=== PATIENT | female | born 1960 | race Caucasian/White ===

== ENCOUNTER 2016-08-30 06:33 | Inpatient (IN) | payer MEDICARE ==
[~2016-08-30] VITALS: Ht 185.4 cm; Wt 113.4 kg
[~2016-08-30 06:33] MED LIST: CHLORTHALIDONE25 MG PO; DILAUDID4 MG PO; FLOMAX0.4 MG PO; IMITREX PO; MELOXICAM PO; POTASSIUM CITR10 MEQ PO; PYRIDIUM200 MG PO; TRAMADOL HCL50 MG PO; TYLENOL WITH C1 EACH PO
[2016-08-30] MEDS ORDERED: MOBIC15 MG PO (11:10)
[2016-08-30] MEDS ORDERED: IMITREX100 MG PO (11:10)
[2016-08-30] MEDS ORDERED: ALL DAY ALLERGY10 M3 PO (11:11)
[2016-08-30] MEDS ORDERED: UROCIT-K15 MEQ PO (11:11)
[2016-08-30] MEDS ORDERED: DAILY MULTIPLE1 EACH PO (11:12)
--- NOTE | 2016-08-30 12:26 | NUR ---
[facility]READMIT PT CARE NOTE THIS IS A 55 YEAR OLD FEMALE SCHEDULED FOR A RIGHT TOTAL KNEE REPLACEMENT ON 09/05/[address] WM AGUILAR. PT STATES SHE LIVES IN A ONE STORY HOME WITH HER , HOME HAS ONE STEP UP TO THE RAMP. PT STATES THAT SHE HAS A TUB/SHOWER COMBINATION AND IS GETTING A SHOWER SEAT, STATES SHE ALREADY HAS A HANDHELD SHOWERHEAD. ALSO STATES SHE IS GOING TO GET A WALKER PRIOR TO HAVING HER SURGERY, IF SHE IS UNABLE TO OBTAIN ONE, WILL GLADLY ORDER ONE WHILE SHE IS HERE. PT STATES SHE HAS AN APPT WITH OP PT ON SUNDAY, AND WILL BE SEEKING OP PT AFTER HER STAY IN THE HOSPITAL. DENIED ANY FURTHER QUESTIONS, NEEDS, CONCERNS, OR ISSUES. WILL FOLLOW HER DURING HER STAY IN THE HOSPITAL. ANJU GONGORA DC CRAPS DEALER CASE MANAGEMENT
--- NOTE | 2016-09-05 09:35 | NUR ---
09/05/16 0935 Roxana Hammer 0928 PATIENT ARRIVES AWAKE, BUT DROWSY. DENIES PAIN, UNABLE TO MOVE LEGS. MASK AT 6 LITERS. 0935 PATIENT REQUESTS TO HAVE MASK OFF, ROOM AIR SATS AT 93%.
--- NOTE | 2016-09-05 09:49 | NUR ---
PT ALERT AND ORIENTED. SHE SEEMED PREPARED AND PRETTY RELAXED. HAD ALREADY BEEN IN TO SEE PT AND SHE SEEMED READY. I FOUND HER VERY FRIENDLY, AND THANKED ME FOR COMING IN. PT DECLINED PRAYER AT THIS TIME. WILL FOLLOW NEEDED
--- NOTE | 2016-09-05 10:24 | NUR ---
PATIENT ARRIVED TO MED SURG ON ROOM AIR, SATS ARE 93% VIA PULSE OX. PATIENT DENIES PAIN, EPIDURAL IS IN EFFECT UNTIL 1744. RIGHT KNEE DRESSING IS SUZY WRAP AND IS CDI. PATIENT HAS GROSS MOVEMENT OF LEGS, SENSATION HAS NOT YET RETURNED, FEET ARE WARM BILATERALLY.
--- NOTE | 2016-09-05 10:29 | NUR ---
PATIENT USING THE INCENTIVE SPIROMETER WELL.
--- NOTE | 2016-09-05 11:03 | NUR ---
ASSESSMENT DONE. ICE TO KNEE. PT ABLE TO WIGGLE LEG AND TOES. DENIES PAIN. TOLERATING CRACKERS AND BROTH. ORDERING LUNCH.
[2016-09-05] MEDS ORDERED: ACETAMINOPHEN-1 EAC1 PO (11:50)
--- NOTE | 2016-09-05 11:50 | NUR ---
SPOKE TO PT AND PHARMACY REGARDING ADV. REACTION TO DILAUIDID. PT STATES IT WAS PO AND SHE VOMITTED UNCONTROLLABLY AFTER TAKING IT. WOULD LIKE TO TAKE SOMETHING ELSE. CALLED AND LEFT MESS. ON DR EPPS PHONE.
--- NOTE | 2016-09-05 12:26 | NUR ---
PT IN WITH A NUMBER OF FAMILY/VISITORS. SHE WELCOMED ME IN, SAID SHE IS FEELING WELL NOW. WILL CONTINUE TO FOLLOW. EXTENDED A BLESSING
--- NOTE | 2016-09-05 12:34 | NUR ---
MED REC COMPLETE--PER PATIENT
--- NOTE | 2016-09-05 13:17 | NUR ---
PT DENIES PAIN. WIGGLING TOES AND LEG. ATE LUNCH WITHOUT DIFFICULTY.
--- NOTE | 2016-09-05 14:20 | NUR ---
ADMINISTERED SCHEDULED MEDS. PT AWAKE AND WATCHING TV. STATES SHE HAS ZERO PAIN AND IS STILL A LITTLE NUMB IN HER BUTT. STATES SHE WILL TRY TO VOID WHEN PHYS. THER. COMES TO WORK WITH HER IN 15 MINUTES.
--- NOTE | 2016-09-05 16:06 | NUR ---
PT BLADDER SCANNED FOR 558. CALLED DR AGUILAR REGARDING WALSH PLACEMENT AND PAIN MED CHANGE DUE TO PT INABILITY TO TAKE DILUIDID. CHANGED ORDERS AND PLACED WALSH. 725 RETURNED. PT STILL DENIES FEELING THE URGE TO VOID.
--- NOTE | 2016-09-05 17:20 | NUR ---
PT WORKED WITH COMPUTER PROGRAMMER ANALYST., WALKED IN BAZZI, TOLERATED WELL. DENIES PAIN. UNABLE TO VOID, PLACED WALSH. CHANGED PO MED TO NORCO DUE TO PT ADV. REACTION TO DILAUDID. DRESSING CDI. ICE TO SITE.
--- NOTE | 2016-09-05 18:13 | NUR ---
PATIENT SITTIN UP IN BED WATCHING TV. FRESH ICE WATER AND ICE PACK. NO OTHER NEEDS AT THIS TIME.
--- NOTE | 2016-09-05 19:45 | NUR ---
IN TO SEE PT, ASSESSMENT DONE, CMS INTACT, SCD'S, HEELS AND ICE IN PLACE. PT RESTING IN BED, WATCHING TV. PT DENIES PAIN. NO FURTHER NEEDS AT THIS TIME, CALL LIGHT WITHIN REACH.
--- NOTE | 2016-09-05 22:32 | NUR ---
IN TO CHECK ON PT, PT APPEARS TO BE SLEEPING. SCD'S, HEELS AND ICE IN PLACE. IVF INFUSING. CALL LIGHT WITHIN REACH.
--- NOTE | 2016-09-06 00:34 | NUR ---
IN TO CHECK ON PT, HEEL PROTECTORS READJUSTED,ICE BAG REFILL AND REAPPLIED. PT RATES PAIN A 2/10. WALSH EMPTIEND. FRESH WATER GIVEN. NO FURTHER NEEDS AT THIS TIME. CALL LIGHT WITHIN REACH.
--- NOTE | 2016-09-06 01:17 | NUR ---
PT COMPLAINED OF 4/10 PAIN IN HER LEFT KNEE, GAVE SCHEDULED PAIN AND PRN MORPHINE. PT HAS NO FURTHER NEEDS. CALL LIGHT IN REACH.
--- NOTE | 2016-09-06 03:32 | NUR ---
IN TO CHANGE IVF, PT RATES HER PAIN A 1/10, SCD'S, HEELS AND ICE IN PLACE. NO FURTHER NEEDS AT THIS TIME, CALL LIGHT WITHIN REACH.
--- NOTE | 2016-09-06 04:47 | NUR ---
PT HAS RESTED WELL THROUGH OUT THE NIGHT.PT HAS HAD MINIMAL PAIN. NORCO AND MORPHINE GIVEN. PT ACTIVE IN BED, ENCOURAGE TO REST R KNEE TO PREVENT INCREASED PAIN. WALSH IN PLACE DUE TO URINARY RETENTION AND DRAINING QUANTITY SUFFICIENT. IVF INFUSING. SCD'S, HEEL PROTECTORS, SUZY WRAP AND ICE IN PLACE.
--- NOTE | 2016-09-06 05:52 | NUR ---
IN TO CHECK ON PT, LAB INTO DRAW BLOOD, SCD'S, HEEL AND ICE IN PLACE. CALL LIGHT WITHIN REACH.
--- NOTE | 2016-09-06 06:40 | NUR ---
IN TO SEE PT, NORCO GIVEN. WALSH DC'D AND IV SL PER ORDERS. BLOODY DRAINAGE NOTED ON DRSG ON THE POSTERIOR ASPECT OF THE R KNEE. ICE WATER GIVEN. NO FURTHER NEEDS AT THIS TIME. CALL LIGHT WITHIN REACH.
--- NOTE | 2016-09-06 07:10 | NUR ---
REPORT RECIEVED FROM FRANSISCA ZURITA. PT HAD GOOD NIGHT AND IS AWAKE IN BED. HAS SOME DRAINAGE SHOWING THROUGH DRESSING. PT DENIES MUCH PAIN RIGHT NOW. HAD PAIN PILL THIS MORNING.
--- NOTE | 2016-09-06 07:30 | NUR ---
stand by assist to chair with walker. patient sittin with legs up eating breakfast. ice fresh in ice bags on right knee.fresh ice water given. no other needs at this time. call button in reach.
--- NOTE | 2016-09-06 08:30 | NUR ---
AGUILAR IN TO SEE PT WHILE GIVING MEDS. STATES THAT PT CAN GO HOME IF SHE WISHES. PT CONCURS. ANSWERED ALL QUESTIONS REGARDING SHOWERING AND DRESSING CHANGES. ORDERED NEW DRESSING CHANGE BEFORE DISCHARGE. EDUCATED PT ON TAKING PRESCRIBED PAIN MEDS VS HOME PAIN PILLS.
--- NOTE | 2016-09-06 08:39 | NUR ---
Patient sittin up in chair bathing and putting make up on fixing her hair. Patient has no needs at this time. call button in reach.
--- NOTE | 2016-09-06 10:00 | NUR ---
PATIENT UP TO VOID 150ML OF URINE IN THE BATHROOM. PATIENT GIVEN ONE NORCO FOR 4/10 RIGHT KNEE PAIN AFTER PHYSICAL THERAPY. NEW ICE PACKS PROVIDED.
[2016-09-06] MEDS ORDERED: XARELTO10 MG PO (10:44)
[2016-09-06] MEDS ORDERED: NORCO 10-325 T1 EACH PO (10:45)
--- NOTE | 2016-09-06 10:45 | NUR ---
CHANGED PT DRESSING. KATY HAY ASSISTED IN HOLDING LEG. PT TOLERATED WELL AND STATED THAT SHE UNDERSTOOD THE INSTRUCTIONS ON CHANGING IT AND KEEPING IT CLEAN AND DRY.
--- NOTE | 2016-09-06 11:28 | NUR ---
PT JUST BACK FROM P.T. SEEMS ENERGIZED AND READY FOR DC. FRIENDLY, ALERT AND ORIENTED. SHE THANKED ME FOR VISITING-EXTENDED A BLESSING, GOD SUSS
--- NOTE | 2016-09-06 14:02 | NUR ---
PT EDUCATION GIVEN. PT VERBALIZED UNDERSTANDING. IV REMOVED WNL. PRESCRIPTION GIVEN. DRESSING CDI. WORKED WITH PHYS. THER. A SECOND TIME. TOLERATED WELL. FAMILY IN ROOM, WAITING FOR .
--- NOTE | 2016-09-07 07:12 | OR ---
[facility] [address] [place], [place] [address] Signed DATE OF SERVICE: 09/05/2016 PREOPERATIVE DIAGNOSIS: End-stage osteoarthritis, right knee. POSTOPERATIVE DIAGNOSIS: End-stage osteoarthritis, right knee. PROCEDURE: Right total knee arthroplasty. IMPLANTS: Attune size 8 PS femur, size 7 cemented tibial tray. A 5 PS poly and a 38 mm poly-patellar button. SURGEON: Cruz Aguilar MD ANESTHESIA: Spinal with sedation. SPECIMEN: There were no specimens. COMPLICATIONS: None. TOURNIQUET TIME: About 75 minutes. WHAT WAS DONE: Patient was taken to the operating room. After the anesthesia was inducted and the patient sedated, the right lower extremity was positioned, prepped, and draped in the routine sterile fashion. The leg was exsanguinated with an Esmarch bandage. Pneum atic tourniquet about the thigh was inflated to 300 mmHg pressure. A straight anterior approach was made to the knee through skin and subcutaneous tissue. Small medial flap was created and an anteromedial arthrotomy performed. The patella was turned on edge and about 10 mm of patella were resected. The patella was then fit with a 38 mm. A lollipop, which gave us good position and good coverage. We therefore drilled the hole. A trial 38 poly and completely restored the previous patellar height. Patellar tri a l was removed. The patellar was slide into the lateral recess and the knee was flexed. Using the Dexin Interactive navigation system, we digitized the distal femur following the protocol. Distal femoral resection was then accomplished and about 3 degrees of flex ne utral verus valgus taking about 11 mm of the medial side . The femorals wafers were then removed and marginal osteophytes excised. We then transitioned the Dexin Interactive navigation system at the proximal tibia and again the following [place] protocol, digitize the proximal tibia. The proximal tibia was then resected in neutral varus valgus and about 3-degrees of posterior slope for the Attune surgical protocol and removing about 4 mm of the medial side. After the wafer had been removed along with remnants of the m e dial and lateral meniscus, ACL and PCL. Knee was placed in full extension and the extension spacer block fit quite nicely. We then flexed the knee. The femoral size was placed on the distal Electronically Signed By: CRUZ AGUILAR MD 09/07/16 0712 PATIENT NAME: SAÚL RENDON OPERATIVE REPORT DATE OF : 56 PHYSICIAN: CRUZ AGUILAR MD REPORT #: [id number] REPORT IS CONFIDENTIAL AND NOT TO BE RELEASED WITHOUT AUTHORIZATION [facility] [address] [place], [place] [address] Signed femur and sized with size 8. The size 7 clearly would have notched the femur anteriorly. The 4 in 1 cutting block was placed on the distal femur and anterior posterior and chamfer cuts were made. The notch cutting block was then placed and the notch was cut out a size 8 PS femur. The femoral trial was then impacted on t h e end of the femur and the leg holes were drilled. We then placed a size 8 tray on the tibia, but there was overhangs, so we downsized with size 7. A 7 mm tray with a 5 mm poly was inserted and they gave us excellent range of motion, good stability, and excellent stability throughout. We marked the rotatio nal alignment of the tibial tray and remove the trails. Tibia was then prepared the standard reamer and broach. We then copiously irrigated and meticulously dried the knee. A double batch of cement was mixed and the tibial tray and the femoral component were cemented in the place. Marginal cement of heights were sought and removed. The poly was then snap-fit onto the tibial tray and the knee was placed in full extension. The patellar button was then also cemented to the back of the patella and held with the patellar clamp. After the cement had hardened, the patellar clamp was removed. We again cycled the knee. We were happy with the alignment and position. There were no additional significant cement of height to be removed. Knee was copiously irrigated and drained and closed in a standard fashion. Sterile dressing was applied. The patient was awaken and taken into the recovery room, where she arrived in stable condition. Counts were correct and antibiotic protocols were followed. Cruz Aguilar MD WFB/Modl /[id number] Electronically Signed By: CRUZ AGUILAR MD 09/07/16 0712 PATIENT NAME: SAÚL RENDON OPERATIVE REPORT DATE OF : 56 PHYSICIAN: CRUZ AGUILAR MD REPORT #: [id number] REPORT IS CONFIDENTIAL AND NOT TO BE RELEASED WITHOUT AUTHORIZATION
== END 2016-09-06 14:52 | disposition home or self-care (01) | DRG 470 ==
LOC: DSVR 09-05 06:15 → MS 09-05 06:15
PROVIDERS: ADMIT Orthopaedic Surgery
PROC: 0SRC0J9 Replacement of Right Knee Joint with Synthetic Substitute, Cemented, Open Approach (ICD-10-PCS; principal; 2016-09-05 08:15)
DX: M19.90 Unspecified osteoarthritis, unspecified site (principal); Z87.442 Personal history of urinary calculi
CPT/HCPCS: 01402; 36415; 73560; 80048; 82310; 82330; 85025; 97110; 97116; 97161; C1713; C1776; J0690; J1885; J2250; J2270; J2274; J2405; J2704; J3010; J7120

== ENCOUNTER 2016-10-07 12:00 | Emergency (ER) | payer MEDICARE ==
[~2016-10-07] VITALS: Ht 185.4 cm; Wt 113.4 kg
--- OUTSIDE RECORDS SUMMARY | ~2016-10-07 | XMS ---
Demographics + + + | Address | [address] | | | [place] [address] | + + + | Preferred Language | Unknown | + + + | Marital Status | Unknown | + + + | Jew Affiliation | Unknown | + + + | Race | Unknown | + + + | Ethnic Group | Unknown | + + + Author + + + | Author | [facility] | + + + | Organization | [facility] | + + + | Address | [address] [facility] [address] | | | [place] [phone] | + + + | Phone | | + + + Care Team Providers + + + + | Care Heading And Priming Operator Name | Role | Phone | + + + + Unavailable | Unavailable | + + + + PROBLEMS +---------+ + + +--------+ + + | Type | Condition | ICD9-CM | [id number] | Onset | Condition | SNOMED | | | | Code | Code | Dates | Status | Code | +---------+ + + +--------+ + + | Problem | Acute | 461.8 | | | Active | [id number] | | | pansinusit | | | | | | | | is | | | | | | +---------+ + + +--------+ + + | Problem | Tobacco | 305.1 | | | Active | [id number] | | | use | | | | | | +---------+ + + +--------+ + + | Problem | HTN | 401.9 | | | Active | [id number] | | | [Hypertens | | | | | | | | ion] | | | | | | +---------+ + + +--------+ + + | Problem | Acute | 461.9 | | | Active | [id number] | | | sinusitis | | | | | | | | NOS | | | | | | +---------+ + + +--------+ + + ALLERGIES Unknown Allergies SOCIAL HISTORY No smoking Hx information available PLAN OF CARE VITAL SIGNS MEDICATIONS Unknown Medications RESULTS No Results PROCEDURES No Known procedures IMMUNIZATIONS No Known Immunizations"
[~2016-10-07 12:00] MED LIST changes: +ACETAMINOPHEN-1 EAC1 PO; +ALL DAY ALLERGY10 M3 PO; +DAILY MULTIPLE1 EACH PO; +IMITREX100 MG PO; +MOBIC15 MG PO; +NORCO 10-325 T1 EACH PO; +UROCIT-K15 MEQ PO; +XARELTO10 MG PO
[2016-10-07] MEDS ORDERED: LEVOFLOXACIN750 MG PO (14:25)
== END 2016-10-07 14:50 | disposition home or self-care (01) ==
LOC: ED 12:00
DX: T81.31XA Disruption of external operation (surgical) wound, not elsewhere classified, initial encounter (principal); F17.200 Nicotine dependence, unspecified, uncomplicated; Z87.442 Personal history of urinary calculi; Z90.49 Acquired absence of other specified parts of digestive tract; Z88.5 Allergy status to narcotic agent; Z88.8 Allergy status to other drugs, medicaments and biological substances; Z88.2 Allergy status to sulfonamides; Z79.891 Long term (current) use of opiate analgesic; Z79.899 Other long term (current) drug therapy
CPT/HCPCS: 85025; 85651; 87070; 87077; 87186; 87205; 99283

== ENCOUNTER 2021-06-14 07:45 | Day surgery (SDC) | payer MEDICARE ==
[~2021-06-14] VITALS: Ht 185.4 cm; Wt 100.0 kg
--- NOTE | ~2021-06-14 | OR ---
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 POSTOPERATIVE DIAGNOSIS: Nasal obstruction due to septal deformity and inferior turbinate hypertrophy. PROCEDURES: Septoplasty and cautery, bilateral inferior turbinates. ANESTHESIA: General, LMA, PLUCK SEPARATOR, Richard. PREOPERATIVE HISTORY: Mrs. Garrett is a 60-year-old lady with a long history of nasal obstruction. She has been noted to have septal deformity and inferior turbinate hypertrophy, unresponsive to appropriate medications. She is taken to the operating room for the above-mentioned procedures. OPERATIVE PROCEDURE AND FINDINGS: After informed consent, the patient was taken to the operating room, placed in the supine position, where LMA anesthesia was induced. Patient and procedure were verified. The patient was repositioned. The patient received preoperative intranasal oxymetazoline and intravenous Ancef. Headlight speculum exam of the nasal cavity showed a significant septal deformity on the right side. A large spur inferiorly extending all the way back posteriorly. Septal mucosa was injected with 1% lidocaine with epi. The mucosa was elevated off the deviated septal bone and cartilage and the deviation was removed with the Jenna. The nasal cavity was improved, opened in this manner, minimal bleeding. The inferior turbinates were then cauterized with a long handle needle point cautery. Multiple submucosal passes starting on the left side. The medial and inferior surface of the inferior turbinate were cauterized multiple times starting anteriorly, extending all the way back posteriorly. Good decongestion and shrinkage of the turbinate was obtained. Same procedure on the right inferior turbinate. Hemostasis was verified. Packing was then placed, equal amount, one piece of Merocel each side trimmed, coated with Neosporin, tied anteriorly over a pad. The pharynx was suctioned clear of blood PATIENT NAME: SAÚL GARRETT OPERATIVE REPORT DATE OF : 56 REPORT #: [id number] PHYSICIAN: DOUGLAS FORTUNE MD PCP: CHRISTINA SAINI MD REPORT IS CONFIDENTIAL AND NOT TO BE RELEASED WITHOUT AUTHORIZATION [facility] [address] [place] [address] [place], [place] [address] Draft secretions. The patient was then awakened, extubated, and transported to the recovery room in good condition. COMPLICATIONS: No complications. ESTIMATED BLOOD LOSS: Minimal. SPECIMENS: No specimens. DRAINS: No drains. PACKING: One piece of Merocel, each nostril. Douglas Fortune MD GC/MODL /[id number] Copies: ~ PATIENT NAME: SAÚL GARRETT OPERATIVE REPORT DATE OF : 56 REPORT #: [id number] PHYSICIAN: DOUGLAS FORTUNE MD PCP: CHRISTINA SAINI MD REPORT IS CONFIDENTIAL AND NOT TO BE RELEASED WITHOUT AUTHORIZATION
[~2021-06-14 07:45] MED LIST changes: +BAYER CHEWABLE81 MG PO; +IPRAT-ALBUT 0.5-3 ML INH; +LEVOFLOXACIN750 MG PO; +LIPITOR20 MG
--- NOTE | 2021-06-14 09:51 | NUR ---
06/14/21 0951 Sheets,Tashia 0939 PT ARRIVED TO PACU ON 10L VIA MASK, VSS. ORAL AIRWAY IN PLACE WITH JAW THURST NEEDED TO MAINTAIN AIRWAY.
--- NOTE | 2021-06-14 10:46 | NUR ---
PATIENT BACK IN DAY SURGERY ROOM FROM PACU. RATES PAIN 2/10. DROWSY. SLEEPING, BUT EASILY WAKES UP TO VOICE. VS CHECKED. MOUSTACHE DRESSING IN PLACE IS CLEAN, DRY AND INTACT. TOLERATING SIPS OF WATER. IV SITE WNL. SCDs ON. CALL LIGHT WITHIN REACH.
[2021-06-14] MEDS ORDERED: HYDROCODON-ACE1 EA10 PO (11:08)
[2021-06-14] MEDS ORDERED: CEPHALEXIN500 M1 PO (11:08)
--- NOTE | 2021-06-14 13:35 | NUR ---
1140: PATIENT RATES PAIN 03/31. DENIES NEED FOR PAIN MEDICATION AT THIS TIME. VS CHECKED. PATIENT ASSISTED OOB AND TO BATHROOM. GAIT STEADY. VOID WITHOUT DIFFICULTY. GAIT STEADY BACK TO ROOM. IV DC'D WNL. TIP INTACT. DRESSING APPLIED. PATIENT GETTING DRESSED WITH HELP FROM . 1208: DISCHARGE INSTRUCTIONS GIVEN TO PATIENT AND . PATIENT AND EDUCATED ON HOW TO CHANGE MUSTACHE DRESSING. PATIENT DISCHARGED TO HOME WITH VIA WHEELCHAIR.
== END 2021-06-14 12:08 | disposition home or self-care (01) ==
LOC: OPS 07:45 → DS 07:45 → OPS 09:00
PROVIDERS: ATTEND Otolaryngology
PROC: 09SM0ZZ Reposition Nasal Septum, Open Approach (ICD-10-PCS; principal; 2021-06-14 09:00)
PROC: 095L7ZZ Destruction of Nasal Turbinate, Via Natural or Artificial Opening (ICD-10-PCS; 2021-06-14 09:00)
DX: J34.2 Deviated nasal septum (principal); J34.3 Hypertrophy of nasal turbinates; I10 Essential (primary) hypertension; E78.00 Pure hypercholesterolemia, unspecified; F17.200 Nicotine dependence, unspecified, uncomplicated; Z88.6 Allergy status to analgesic agent; Z88.2 Allergy status to sulfonamides; Z88.8 Allergy status to other drugs, medicaments and biological substances
CPT/HCPCS: J0690; J1100; J1885; J2250; J2405; J2704; J2765; J3010; J7121

== ENCOUNTER 2022-01-04 19:11 | Emergency (ER) | payer MEDICARE ==
[~2022-01-04] VITALS: Ht 185.4 cm; Wt 99.8 kg
[~2022-01-04 19:11] MED LIST changes: +CEPHALEXIN500 M1 PO; +HYDROCODON-ACE1 EA10 PO
--- NOTE | 2022-01-07 13:54 | EKG ---
[facility] [address] [facility] [place] [address] Signed Normal sinus rhythm Possible Left atrial enlargement Left ventricular hypertrophy ( R in aVL , [place]as product ) Cannot rule out Septal infarct (cited on or before 09-JUN-2021) Abnormal ECG When compared with ECG of 09-JUN-2021 09:52, No significant change was found Confirmed by RUSSELL FRANCO MD ([id number]) on 01/07/2022 1:54:23 PM Electronically Signed By: RUSSELL FRANCO MD 01/07/22 1354 PATIENT NAME: SAÚL RENDON Electrocardiogram DATE OF : 56 PHYSICIAN: RUSSELL FRANCO MD REPORT #: [id number] REPORT IS CONFIDENTIAL AND NOT TO BE RELEASED WITHOUT AUTHORIZATION
== END 2022-01-04 20:26 | disposition home or self-care (01) ==
LOC: ED 19:11
DX: R07.9 Chest pain, unspecified (principal); G43.909 Migraine, unspecified, not intractable, without status migrainosus; M19.90 Unspecified osteoarthritis, unspecified site; F17.200 Nicotine dependence, unspecified, uncomplicated; Z88.2 Allergy status to sulfonamides; Z88.1 Allergy status to other antibiotic agents; Z88.5 Allergy status to narcotic agent; Z88.8 Allergy status to other drugs, medicaments and biological substances; Z79.899 Other long term (current) drug therapy; Z79.82 Long term (current) use of aspirin
CPT/HCPCS: 36415; 71045; 80053; 83735; 84484; 85025; 93005; 93010; 99285-25

== ENCOUNTER 2023-11-27 11:15 | Day surgery (SDC) | payer MEDICARE ==
[~2023-11-27] VITALS: Ht 185.4 cm; Wt 106.8 kg
[~2023-11-27 11:15] MED LIST changes: +CEFAZOLIN SODIUM 2 GM/20 ML SYR IV SCH; +IBLOOD GLUCOSE TEST STRIP 1 EA TEST VI PRN; +LACTATED RINGER'S 1,000 ML IV SCH; +LIDOCAINE HCL 1% 5 ML SDV INJ ONE; +MIDAZOLAM HCL 5 MG/5 ML VIAL IV PRN; +fentaNYL citrate 100 MCG/2 ML VIAL IV PRN
[2023-11-27 11:37] VITALS: BP 117/69
[2023-11-27] MEDS ORDERED: ALLEGRA ALLERGY60 MG PO (11:42)
[2023-11-27] MEDS ORDERED: MIDAZOLAM HCL 5 MG/5 ML VIAL ONE (13:12)
[2023-11-27] MEDS ORDERED: fentaNYL citrate 100 MCG/2 ML VIAL ONE (13:13)
--- NOTE | 2023-11-27 14:29 | NUR ---
11/27/23 Tasneem9 Olga Lidia Garibay 1426-PATIENT ARRIVED TO PACU ON 0.5L NC PLACED ON RA RR EVEN. PATIENT AWAKE DROWSY DENIES PAIN OR NAUSEA. IVF INFUSING. ABDOMEN SOFT LAYING LEFT LATERAL. ORIENTED TO PACU. DOZES BACK TO SLEEP
[2023-11-27 14:55] VITALS: BP 108/74
--- NOTE | 2023-11-29 14:24 | PATH ---
[facility] [address] [facility] [place], [place] [address] Signed SPECIMEN(S): A SIGMOID POLYPS SPECIMEN(S): B RECTAL POLYPS SPECIMEN(S): C LOWER RECTAL POLYPS SPECIMEN SOURCE: A. SIGMOID POLYPS B. RECTAL POLYPS C. LOWER RECTAL POLYPS CLINICAL HISTORY: Family history of colon cancer FINAL PATHOLOGIC DIAGNOSIS: A. Colon, sigmoid, polypectomy: - Tubular adenoma B. Rectum, polypectomy: - Hyperplastic polyp C. Rectum, lower, polypectomy: - Hyperplastic polyp BRP MICROSCOPIC EXAMINATION: Histologic sections of all submitted blocks are examined by light microscopy. These findings, together with the gross examination, support the pathologic diagnosis. GROSS DESCRIPTION: A. The specimen, labeled and designated "Garrett, sigmoid polyp," is received in formalin and consists of four turner soft tissue fragments, ranging from 0.3-0.5 cm. Entirely submitted in (A1). B. The specimen, labeled and designated "Garrett, rectal polyps," is received in formalin and consists of five turner soft tissue fragments, ranging from 0.1-0.5 cm. Entirely submitted in (B1). C. The specimen, labeled and designated "Garrett, lower rectal polyps," is received in formalin and consists of eight turner soft tissue fragments, ranging from 0.1-0.2 cm. Entirely submitted in (C1). VB (under the direct supervision of a pathologist) The Gross Description was prepared using a voice recognition system. The report was reviewed for accuracy; however, sound-alike word errors, addition and/or deletions may occur. If there is any question about this report, please contact Client Services. PATIENT NAME: SAÚL GARRETT PATHOLOGY DATE OF : 56 REPORT #: [id number] PHYSICIAN: TOM MARTINEZ PCP: CHRISTINA SAINI MD REPORT IS CONFIDENTIAL AND NOT TO BE RELEASED WITHOUT AUTHORIZATION [address], [place] [address] Signed ADDITIONAL NOTES: Immunohistochemical and/or in situ hybridization studies if performed in this case included appropriate positive controls that reacted as expected. This test was developed and its performance characteristics determined by [facility]. It has not been cleared or approved by the U.S. Food and Drug Administration. The FDA has determined that such clearance or approval is not necessary. This test is used for clinical purposes. It should not be regarded as investigational or for research. [facility] is certified under the Clinical Laboratory Improvement Amendments of 1988 (CLIA) as qualified to perform high complexity clinical laboratory testing. PERFORMING LABORATORY: Technical component was performed by [facility], [address] [place] [address] (CLIA# [id number]). Professional interpretation was performed by [facility] - [facility] [place] [facility] [place], [address] [place] [address] (CLIA#: [id number]). Diagnostician: Anil Mtz MD Pathologist Electronically Signed 11/29/2023 Copies: ~ PATIENT NAME: SAÚL GARRETT PATHOLOGY DATE OF : 56 REPORT #: [id number] PHYSICIAN: TOM MARTINEZ PCP: CHRISTINA SAINI MD REPORT IS CONFIDENTIAL AND NOT TO BE RELEASED WITHOUT AUTHORIZATION
--- NOTE | 2023-12-02 14:27 | OR ---
[facility] [address], [place] [address] Signed DATE OF OPERATION: 11/27/2023 SURGEON: Milan Rosado MD PREOPERATIVE DIAGNOSIS: Family history of colon cancer (mother). POSTOPERATIVE DIAGNOSIS: Multiple polyps, probably hyperplastic. PROCEDURES: Total colonoscopy to cecum with cold morcellation polypectomy of sigmoid polyps, rectal polyps, and low rectal polyps (8 total). ANESTHESIA: Intravenous sedation; fentanyl 100 mcg and Versed 8 mg. INDICATION: This 63-year-old white woman is a patient of Dr. Christina Reza and known to me from the past. She last underwent colonoscopy in 2017, which was normal. She does have family history of colon cancer in her mother. She is admitted at this time to undergo surveillance colonoscopy. She understands the risk of bleeding, infection, and perforation. FINDINGS: The prep was good. Complete colonoscopy was undertaken of the cecum with full intubation of the cecum. There were small polyps, probably hyperplastic, two in the sigmoid, two in the proximal rectum and two in the low rectum. She also had hypertrophied anal papilla. DESCRIPTION OF PROCEDURE: The patient was brought to the endoscopy suite and placed in the lateral decubitus position, given intravenous sedation to the point of slurred speech and nystagmus. Digital rectal examination was normal. An Olympus video colonoscope was passed in the rectum and manipulated throughout the colon ultimately intubating the cecum itself. The ileocecal valve and appendiceal orifice were normal. The scope was withdrawn from that point. Examination throughout showed no sign of abnormality until the sigmoid where there were two very small polyps, possibly hyperplastic in nature. They were excised with cold morcellation technique. Electronically Signed By: MILAN ROSADO MD 12/02/23 1427 PATIENT NAME: SAÚL RENDON OPERATIVE REPORT DATE OF : 56 REPORT #: [id number] PHYSICIAN: MILAN ROSADO MD PCP: CHRISTINA REZA MD REPORT IS CONFIDENTIAL AND NOT TO BE RELEASED WITHOUT AUTHORIZATION [facility] [address] [facility] [place], [place] [address] Signed Further withdrawal showed three small polyps proximal rectum or rectosigmoid junction, all three were excised and passed in the same container and probably hyperplastic as noted. Retroflexed view of the rectum showed three small polyps, likely all hyperplastic, all excised with cold morcellation technique as well. The scope was removed and the patient was taken to the recovery room in good condition. CONCLUDING DIAGNOSIS: Multiple small polyps, probably hyperplastic. PLAN: Recommend repeat colonoscopy in 5 years. If pathology should show that these are adenomatous, repeat would be recommended in three years. She will return to the ongoing care of Dr. Reza. MD KRISH Kan/YANG /[id number] cc: Christina Reza MD Copies: CHRISTINA REZA MD ~ Electronically Signed By: MILAN ROSADO MD 12/02/23 1427 PATIENT NAME: SAÚL RENDON OPERATIVE REPORT DATE OF : 56 REPORT #: [id number] PHYSICIAN: MILAN ROSADO MD PCP: CHRISTINA REZA MD REPORT IS CONFIDENTIAL AND NOT TO BE RELEASED WITHOUT AUTHORIZATION
== END 2023-11-27 15:05 | disposition home or self-care (01) ==
LOC: DS 11:15
PROVIDERS: ATTEND Surgery
PROC: 0DBN8ZZ Excision of Sigmoid Colon, Via Natural or Artificial Opening Endoscopic (ICD-10-PCS; 2023-11-27)
PROC: 0DBP8ZZ Excision of Rectum, Via Natural or Artificial Opening Endoscopic (ICD-10-PCS; principal; 2023-11-27 13:00)
DX: Z12.11 Encounter for screening for malignant neoplasm of colon (principal); D12.5 Benign neoplasm of sigmoid colon; K62.1 Rectal polyp; I10 Essential (primary) hypertension; F17.210 Nicotine dependence, cigarettes, uncomplicated; E66.9 Obesity, unspecified; Z68.31 Body mass index [BMI] 31.0-31.9, adult; Z88.2 Allergy status to sulfonamides; Z88.5 Allergy status to narcotic agent; Z88.8 Allergy status to other drugs, medicaments and biological substances; Z79.899 Other long term (current) drug therapy; Z90.49 Acquired absence of other specified parts of digestive tract; Z80.0 Family history of malignant neoplasm of digestive organs
CPT/HCPCS: 88305; 99153; G0500; J0690; J2250; J3010; J7121

== ENCOUNTER 2024-06-12 03:45 | Emergency (ER) | payer MEDICARE ==
[~2024-06-12] VITALS: Ht 185.4 cm; Wt 108.0 kg
[~2024-06-12 03:45] MED LIST changes: +ALLEGRA ALLERGY60 MG PO; -CEFAZOLIN SODIUM 2 GM/20 ML SYR IV SCH; -IBLOOD GLUCOSE TEST STRIP 1 EA TEST VI PRN; -LACTATED RINGER'S 1,000 ML IV SCH; -LIDOCAINE HCL 1% 5 ML SDV INJ ONE; -MIDAZOLAM HCL 5 MG/5 ML VIAL IV PRN; -fentaNYL citrate 100 MCG/2 ML VIAL IV PRN
[2024-06-12] MEDS ORDERED: TAMSULOSIN HCL0.4 MG PO (04:00)
[2024-06-12] MEDS ORDERED: LORATADINE5 MG/5 ML PO (04:00)
[2024-06-12] MEDS ORDERED: ENALAPRILAT DIHYDRATE 1.25 MG/ML VIAL IV ONE (04:00)
[2024-06-12 04:21] LABS: BASOPHILS 1.4 % (0-2); EOSINOPHILS 2.6 % (0-6); HEMATOCRIT 43.5 % (35.0-50.0); HEMOGLOBIN 15.2 g/dL (12.0-18.0); LYMPHOCYTES 22.1 % (24-44); MCH 31.3 (27-36); MCHC 34.9 g/dl (30-36); MCV 89.9 fl (81-99); NEUTROPHILS 65.9 % (39-80); PLATELET COUNT 312 K/uL (140-440); RBC 4.85 M/ul (4.3-5.7); RDW 14.4 (10.5-15.0)
[2024-06-12 04:30] LABS: ALBUMIN 3.6 g/dL (3.4-5.0); ALBUMIN/GLOBULIN RATIO 0.84 (1.1-2.4); ANION GAP 14.7 (7-21); BILIRUBIN, TOTAL 0.5 mg/dL (0.2-1.0); BUN/CREATININE RATIO 21.73 (6.0-28.6); CALCIUM 9.3 mg/dL (8.5-10.1); CREATININE, SERUM 0.92 mg/dL (0.55-1.02); MAGNESIUM 1.6 mg/dL (1.8-2.4); POTASSIUM 3.7 mmol/L (3.5-5.1); PROTEIN, TOTAL 7.9 g/dL (6.4-8.2)
[2024-06-12] MEDS ORDERED: MAGNESIUM OXID400 M1 PO (04:42)
[2024-06-12] MEDS ORDERED: MAGNESIUM SULFATE 2 GM/50 ML BAG IV ONE (04:45)
[2024-06-12 05:29] VITALS: BP 136/79
--- NOTE | 2024-06-12 22:55 | EKG ---
[facility] [address] [place] [place] [address] Signed Normal sinus rhythm Left axis deviation Moderate voltage criteria for LVH, may be normal variant ( R in aVL , Hurt product ) Abnormal ECG When compared with ECG of 04-JAN-2022 19:21, Minimal criteria for Septal infarct are no longer present Confirmed by Jose Yarbrough MD () on 06/12/2024 10:55:30 PM Electronically Signed By: JOSE YARBROUGH MD 06/12/24 2255 PATIENT NAME: SAÚL RENDON Electrocardiogram DATE OF : 56 PHYSICIAN: JOSE YARBROUGH MD REPORT #: [id number] REPORT IS CONFIDENTIAL AND NOT TO BE RELEASED WITHOUT AUTHORIZATION
== END 2024-06-12 05:30 | disposition home or self-care (01) ==
LOC: ED 03:45
PROVIDERS: Family Medicine
DX: I10 Essential (primary) hypertension (principal); E83.42 Hypomagnesemia; R00.2 Palpitations; Z88.0 Allergy status to penicillin; Z88.2 Allergy status to sulfonamides; Z88.8 Allergy status to other drugs, medicaments and biological substances; Z88.9 Allergy status to unspecified drugs, medicaments and biological substances; Z88.5 Allergy status to narcotic agent; Z87.442 Personal history of urinary calculi
CPT/HCPCS: 36415; 80053; 83735; 83880; 84484; 85025; 93005; 93010; 96365; 96368; 96375; 99285-25; J3475